=== PATIENT | male | born 1945 | race Caucasian/White ===

== ENCOUNTER 2017-08-20 15:30 | Outpatient (RCR) | payer MEDICARE, OTHER, SELFPAY ==
--- NOTE | 2017-06-26 08:49 | ST.OPTN ---
On June 25, 2017 our therapy services consisting of Speech, Occupational, and Physical therapy transitioned from [employer] electronic documentation system to a new [employer] electronic system. All documentation prior to June 25 can be found under [employer] saved data. From June 25 forward, all medical record documentation will be in [employer] 6.1.
--- NOTE | 2017-08-20 17:37 | ST.OPRE ---
Visit Care Team Role Provider Type Sofia Rosales DO Family Provider Physician Primary Care Provider Specialty: Family Practice Address: [address] [place] [address], [id number] Email: [email or web address] Michela Auguste MD Attending Provider Non-Staff Specialty: Neurology Address: [address] [place] [address], [id number] Email: Speech-Language Pathology Evaluation/Summary WEBLOGIC DEVELOPER Treatment Note Start: 06/26/17 12:19 Freq: Status: Active Protocol: Document 08/20/17 17:21 JASIEL (Rec: 08/20/17 17:34 JASIEL [email or web address]) Speech Pathology Treatment Note Session Time Visit Start Time 15:30 Visit Stop Time 16:15 Total Visit Minutes 45 Visit Information Visit Number Re-evaluation Plan of Care Dates 08/20/17 - 11/14/17 Insurance Information Medicare Setting Treatment Setting Outpatient Care Visit Type Note Type Treatment Note Next Note Type Next Note Type Treatment Note General Information General Information 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 Subjective Observations/Patient Presentation Pt arrived on time. Has demonstrated near daily use of Constant Therapy HEP pina. Chief Complaint(s) Language Cognitive Rehab Expectation/Goals: Patient Goals Improve loss of function to WFL. Patient Knowledge/Awareness of WEBLOGIC DEVELOPER Role Good in Treatment Parent/Caretake Knowledge/Awareness of Good WEBLOGIC DEVELOPER Role in Treatment Patient/Caregiver Compliance with Home Fair Exercise Program Objective Short Term Goals 1. Complete therapy-based tasks with 75% accuracy in order to improve working memory for functional use. 2. Participate in errorless learning tasks with 80% accuracy in order to improve short term memorization skills . 3. Complete HEP tasks at least 3 days/week to improve skills and promote carryover. Catalyst Unit Operator Goals Use compensatory memory strategies to maintain independence in completing ADLs. Treatment Activities Pt demonstrating improvement in HEP tasks and consistent compliance over the previous 2 weeks. Adjusted tasks according to pt's progress. Pt completed memory tasks (voice message, N-back x2 components ) with 80% and 79% accuracy, respectively. Pt is generally making progress in tasks with all scores improved since baseline; lowest scores evident in analytical reasoning, mathematic, auditory comprehension and selective memory tasks. Assessment Patient Response to Treatment Good Rehab Potential Good Impairments Identified Cognitive-Linguistic Skills Memory - Short Term Memory - Working Progress Towards Goals Good Progress Assessment of Overall Progress Improving Assessment of Improvement With consistent compliance with HEP, the pt exhibits improvement in a variety of language and cognitive communication tasks. Pt is advancing in most tasks to higher levels of difficulty and has demonstrated improvement from baseline scores in all areas. He continues to use memory notebook to track daily information and expresses comfort and benefit from this use. He reports maintaining his ability to perform home and volunteer responsibilities . Plan: Continue skilled intervention with decreased frequency for carryover of HEP compliance leading to discharge to [facility] anticipated within 2-4 visits. Reviewed with Patient Goals Progress Being Made Home Exercise Program Patient/Caregiver Understanding Good Plan Amount of Therapy Recommended 2 Months Comment 1-2 visits in 4 weeks Length of Session 45 Minutes Comment Frequency: 1 visit every 2 weeks Treatment Emphasis Next Session Attention, Working memory Therapeutic Contents Client Education Cognitive-Linguistic Training Home Exercise Program Provided Patient/Caregiver Instruction Home Exercise Program Plan of Care Questions/Concerns Therapy Recommendations Continue with Current Program
== END 2017-08-20 16:49 ==
LOC: SP 15:30
PROVIDERS: Family Provider Family Medicine; PCP Family Medicine; Visit Provider Psychiatry & Neurology Neurology
DX: I69.919 Unspecified symptoms and signs involving cognitive functions following unspecified cerebrovascular disease (principal)
CPT/HCPCS: 97127

== ENCOUNTER 2017-10-17 13:22 | Observation (INO) | payer MEDICARE, OTHER, SELFPAY ==
[2017-10-17] VITALS (9 sets, daily range): BP systolic 134–171; BP diastolic 77–100; PULSE 59–85; RESP 10–21; TEMP 36.5–36.8; O2SAT 95–99; BMI 34.8
--- NOTE | 2017-10-17 | DI.CT.S_ITS ---
PROCEDURE: CT CERVICAL SPINE WO CON INDICATIONS: SENSORY CHANGES LT HAND Vertebrobasilar TIA? TECHNIQUE: Noncontrast 3 mm thick sections acquired from the skull base to the T4 level. Sagittal and coronal reformats were then constructed. For radiation dose reduction, the following was used: automated exposure control, adjustment of mA and/or kV according to patient size. COMPARISON: [facility], CT, CT ANGIO HEAD AND NECK, 10/17/2017, 14:05. FINDINGS: Image quality: Excellent. Bones: No fractures or dislocations. There is straightening of the cervical lordosis. Multilevel moderate disc space narrowing is demonstrated in the mid and lower cervical spine with endplate sclerosis and osteophytosis. There is also mild multilevel uncovertebral and facet joint arthropathy. Associated posterior disc osteophyte complexes are demonstrated at C3-T1 with likely associated mild spinal canal narrowing. There is multilevel bony neuroforaminal narrowing also noted most prominent on the right at C5-C6 where there is moderate to severe bony neuroforaminal narrowing. On the left, there is likely moderate bony narrowing at C3-C4, C4-C5, C5-C6. Visualized superior ribs are intact. Soft tissues: Prevertebral soft tissues are normal in thickness. No paravertebral hematomas. No apical pneumothoraces. IMPRESSION: 1. Multilevel degenerative disc disease, uncovertebral joint arthropathy, and facet arthropathy in the mid and lower cervical spine. There is associated multilevel spinal canal and bony neuroforaminal narrowing as described. Dictated by: Ish Pizano M.D. on 10/17/2017 at 19:08 Approved by: Ish Pizano M.D. on 10/17/2017 at 19:15
--- NOTE | 2017-10-17 13:33 | DI.CT.S_ITS ---
PROCEDURE: CT HEAD/BRAIN WO CON INDICATIONS: possible stroke seeing double vison TECHNIQUE: Noncontrast 4.5 mm thick angled axial sections acquired from the foramen magnum to the vertex, with coronal and sagittal reformats. For radiation dose reduction, the following was used: automated exposure control, adjustment of mA and/or kV according to patient size. COMPARISON: [facility], MR, BRAIN WITHOUT CONTRAST, 07/04/2016, 12:50. [facility], CT, HEAD WITHOUT CONTRAST, 12/27/2013, 14:54. FINDINGS: Image quality: Excellent. CSF spaces: Basal cisterns are patent. No extra-axial fluid collections. The ventricles are symmetric in size and shape. Brain: No intracranial bleeds or masses. There is cerebral volume loss for age, with resultant ventricular and sulcal prominence. There are periventricular and deep white matter chronic small vessel ischemic changes. There is intracranial internal carotid artery atherosclerosis. Skull and face: Calvarium and visualized facial bones appear intact, without suspicious lesions. Sinuses: Visualized sinuses and mastoids are clear. IMPRESSION: 1. No acute intracranial abnormalities. 2. Cerebral volume loss and chronic microvascular ischemic changes. The result was discussed with Dr. Harrison on 10/17/2017 at 13:48 hours. Dictated by: Verónica Arnold M.D. on 10/17/2017 at 13:45 Approved by: Verónica Arnold M.D. on 10/17/2017 at 13:49
--- NOTE | 2017-10-17 13:41 | PC.NURSE ---
Code Stroke called at 1330 with DO Harrison at bedside.
[2017-10-17 13:42] LABS: Add Manual Diff / Slide Review NO; Basophils Percent Auto 0.8 % (0-2); Eosinophils Percent Auto 1.8 % (2-4); Hematocrit 45.1 % (41-53); Hemoglobin 15.5 g/dL (13.5-17.5); Lymphocytes Percent Auto 28.8 % (25-40); Mean Corpuscular HGB Conc 34.4 % (30-36); Mean Corpuscular Hemoglobin 30.6 PG (26-34); Mean Corpuscular Volume 88.9 fL (80-100); Monocytes Percent Auto 10.6 % (3-14); Neutrophils Absolute Auto 4700 /uL (3000-5900); Platelet Count 208 X10^3/uL (150-400); Red Blood Cell Count 5.08 X10^6/uL (4.5-5.9); Red Cell Distribution Width 13.5 % (11.6-14.8); White Blood Cell Count 8.1 X10^3/uL (4.5-11.0)
[2017-10-17 13:45] LABS: Prothrombin Time 11.4 SECONDS (10.1-12.7)
[2017-10-17 13:48] LABS: PTT Partial Thromboplastin Tim 30 SECONDS (26.4-36.2)
[2017-10-17 13:50] LABS: Alanine Aminotransferase 33 IU/L (21-72); Albumin 4.7 g/dL (3.5-5.0); Albumin Globulin Ratio 1.5 (1.0-2.8); Alkaline Phosphatase 61 U/L (38-126); Aspartate Aminotransferase 36 IU/L (17-59); Bilirubin Total 0.8 mg/dL (0.2-1.3); Blood Urea Nitrogen 15 mg/dL (9-20); Calcium 9.2 mg/dL (8.4-10.2); Carbon Dioxide 22 mmol/L (22-32); Chloride 104 mmol/L (98-107); Estimated Glomerular Filt Rate > 60.0 mL/min (>60); Globulin 3.1 g/dL (1.7-4.1); Glucose 110 mg/dL (80-110); Potassium 4.5 mmol/L (3.4-5.1); Sodium 138 mmol/L (137-145); Total Protein 7.8 g/dL (6.3-8.2)
[2017-10-17 13:53] LABS: HEMOLYSIS 66 (0-50)
--- NOTE | 2017-10-17 14:01 | ED_ITS ---
HPI - Neuro Symptoms/Deficit General Chief Complaint: Neuro Symptoms/Deficit Stated Complaint: head spinning,thinks he is having a stroke Time Seen by Provider: 10/17/17 13:25 Source: patient Mode of arrival: ambulatory Limitations: no limitations History of Present Illness HPI Narrative: 72-year-old male here for evaluation of blurry vision and ?head fogginess? patient states that it started approximately 30 min prior to arrival here in the emergency department. Was sudden onset. No other associated symptoms. He states that this is what he felt like prior to the diagnosis of his last stroke where he was sent to [facility]. Patient is on Plavix. Not on aspirin. No balance issues. No headaches. No trauma. On Anticoagulants: Yes (plavix) Related Data Previous Rx's Medication Instructions Recorded atorvastatin 20 mg tablet 20 mg PO DAILY #90 tab 09/20/17 clopidogrel 75 mg tablet 75 mg PO QDAY #90 tab 09/20/17 insulin glargine (U-100) 100 10 unit SUBCUT QDAY #3 ml 09/20/17 unit/mL (3 mL) subcutaneous pen metformin 500 mg tablet 500 mg PO QDAY #90 tab 09/20/17 Allergies Allergy/AdvReac Type Severity Reaction Status Date / Time No Known Drug Allergies Allergy Verified 10/17/17 14:03 Review of Systems Constitutional Denies chills, Denies fatigue, Denies fever(s), Denies frequent falls, Denies headache(s) and Denies weakness Eyes Denies blind spots, Reports blurry vision, Reports change in vision, Denies diplopia, Denies irritation and Denies loss of vision ENT Ears, Nose, Mouth, and Throat: Denies vertigo, Denies dizziness, Denies headache (s), Denies disequilibrium and Denies sore throat Cardiovascular Denies chest pain, Denies syncope, Denies palpitations and Denies dyspnea Respiratory Denies cough and Denies dyspnea Gastrointestinal Gastrointestinal: Denies abdominal pain, Denies change in stool character, Denies nausea and Denies vomiting Genitourinary Denies hematuria and Denies dysuria Musculoskeletal Denies abnormal gait, Denies myalgias, Denies arthralgias, Denies numbness and Denies tingling Integumentary/Breasts Denies lesions and Denies rash Neurologic Denies abnormal movements, Denies abnormal speech, Denies abnormal gait, Denies behavioral changes, Denies confusion, Denies vertigo, Denies dizziness, Denies syncope, Denies frequent falls, Denies headache(s), Denies focal weakness, Denies loss of vision, Denies numbness, Denies sensory deficit, Denies tingling , Denies paresthesias, Denies disequilibrium and Denies weakness Psychiatric Denies behavioral changes and Denies confusion Endocrine Denies fatigue, Denies flushing and Denies palpitations Hematologic/Lymphatic Denies easy bleeding and Denies easy bruising [facility] Medical History Stroke (Acute 12/2013) Diabetes (Chronic 2013) Hyperlipemia (Chronic Unknown) Hypertension (Chronic Unknown) Osteoarthritis (Chronic Unknown) Malaria (Resolved 1973) Measles (Resolved 1955) Mumps (Resolved 1955) Skin mole (Resolved 2013) Surgical History History of hip replacement (04/27/14) Family History Brother Age: 61 Diabetes mellitus Father Stroke Grandmother Diabetes mellitus Heart disease Mother Stroke Grandfather Heart disease Sister Age: 68 Diabetes mellitus Social History Smoking Status: Never smoker alcohol intake: never substance use type: does not use Exam Initial Vital Signs Initial Vital Signs: Vital Signs Temperature 98.3 F 10/17/17 13:22 Pulse Rate 85 10/17/17 13:22 Respiratory Rate 16 10/17/17 13:22 Blood Pressure 160/84 H 10/17/17 13:22 Pulse Oximetry 99 10/17/17 13:22 Const General: cooperative, healthy appearing, comfortable, well developed, well groomed and No acute distress Orientation: alert, awake and oriented x3 HENMT Head: normal to inspection, normocephalic and atraumatic Ears: hearing grossly normal bilaterally Nose: external nose normal Face and sinus: normal facial exam Mouth: oral mucosae normal Eyes General: appearance normal, both eyes and all related structures Conjunctivae: conjunctivae normal Pupils: PERRL EOM: EOM intact bilaterally Resp Effort & Inspection: normal respiratory effort Auscultation: clear to auscultation bilaterally Cardio Rate: regular rate Rhythm: regular rhythm Heart Sounds: no murmurs Pulses: radial pulses present GI Inspection: non-distended Palpation: soft, No firm and No guarding Skin Lesions: no lesions Rashes: no rashes Neuro General: alert, awake and oriented x3 Cranial Nerves: CN's II-XI intact bilaterally Cognition: normal cognition Speech: speech normal Gait: normal gait Motor: muscle tone normal throughout Sensory Exam: no sensory deficits noted Extrem General: normal to inspection, full ROM and capillary refill normal Psych Appearance: grossly normal and well kempt Scores GCS [place] coma scale eye opening: Spontaneous Vika coma scale verbal response: Orientated Vika coma scale motor response: Obey commands [place] coma scale total score: 15 NIH Stroke Scale Level of Conciousness: Alert, keenly responsive Ask month/age: Answers both questions correctly. Open/close eyes, close hand: Performs both tasks correctly Best gaze horizontal: Normal Visual madsen: No visual loss Facial palsy: Normal symetrical movement Left arm drift: No drift for full 10 sec Right arm drift: No drift for full 10 sec Left leg drift: No drift for full 10 sec Right leg drift: No drift for full 10 sec Limb ataxia: Absent Sensory on face/arms/legs: Normal, no sensory loss Best language: No aphasia, normal Dysarthria: Normal Extinction or inattention: No abnormality Total NIH Stroke scale score: 0 Course Orders Ordered: ED Orders 10/17/17 13:25 Complete Blood Count AUTO DIFF Stat Comprehensive Metabolic Panel Stat Partial Thromboplastin Time Stat Prothrombin Time INR Stat 10/17/17 13:31 EKG-12 Lead Stat 10/17/17 13:33 CT head/brain wo con Stat 10/17/17 14:11 CT angio head and neck Stat Discontinued Medications Aspirin (Aspirin Chew) 324 mg PO NOW ONE Stop: 10/17/17 15:20 Sodium Chloride (Normal Saline 0.9%) 1,000 mls @ 1,000 mls/hr IV BOLUS ONE Stop: 10/17/17 15:07 Last Infusion: 10/17/17 15:23 Dose: 0 mls/hr Admin: 10/17/17 14:24 Dose: 1,000 mls/hr Vital Signs - 8 hr 10/17/17 13:22 10/17/17 13:42 10/17/17 14:15 Temperature 98.3 F Pulse Rate 85 83 72 Respiratory Rate 16 16 18 Blood Pressure 160/84 H Blood Pressure [Left Arm] 171/97 H 135/88 H Pulse Oximetry 99 97 96 10/17/17 14:50 10/17/17 15:00 Temperature Pulse Rate 81 76 Respiratory Rate 21 14 Blood Pressure Blood Pressure [Left Arm] 134/79 H 142/91 H Pulse Oximetry 96 97 MDM - Neuro Symptoms/Deficit Medical Records Attestation: I reviewed the patient's medical records. Lab Data Attestation: I reviewed the patient's lab results. Result diagrams: 10/17/17 13:25 10/17/17 13:25 Lab Results 10/17/17 10/17/17 10/17/17 Range/Units 13:25 13:25 13:25 WBC 8.1 (4.5-11.0) X10^3/uL RBC 5.08 (4.5-5.9) X10^6/uL Hgb 15.5 (13.5-17.5) g/dL Hct 45.1 (41-53) % MCV 88.9 (80-100) fL MCH 30.6 (26-34) PG MCHC 34.4 (30-36) % RDW 13.5 (11.6-14.8) % Plt Count 208 (150-400) X10^3/uL Neut % (Auto) 58.0 (50-75) % Lymph % (Auto) 28.8 (25-40) % [place] % (Auto) 10.6 (3-14) % Eos % (Auto) 1.8 L (2-4) % Baso % (Auto) 0.8 (0-2) % Neut # (Auto) 4700 (3429-7950) /uL PT 11.4 (10.1-12.7) SECONDS INR 1.0 (0.9-1.3) APTT 30 (26.4-36.2) SECONDS Sodium 138 (137-145) mmol/L Potassium 4.5 (3.4-5.1) mmol/L Chloride 104 (98-107) mmol/L Carbon Dioxide 22 (22-32) mmol/L BUN 15 (9-20) mg/dL Creatinine 1.00 (0.66-1.25) mg/dL Estimated GFR > 60.0 (>60) mL/min BUN/Creatinine Ratio 15.0 (6-22) Glucose 110 (80-110) mg/dL Calcium 9.2 (8.4-10.2) mg/dL Total Bilirubin 0.8 (0.2-1.3) mg/dL AST 36 (17-59) IU/L ALT 33 (21-72) IU/L Alkaline Phosphatase 61 (38-126) U/L Total Protein 7.8 (6.3-8.2) g/dL Albumin 4.7 (3.5-5.0) g/dL Globulin 3.1 (1.7-4.1) g/dL Albumin/Globulin Ratio 1.5 (1.0-2.8) Imaging Data CT scan - head: Radiologist's impression: [address] [address] [address] Scan Report Addendum Patient: Micha Aldrich FMR#: [id number] : 4Acct:[id number] Age/Sex: 72 / MDate of Service: 10/17/17 Loc: ED Accession Number: [id number] Procedure: CT head/brain wo con Ordering Provider: Jeramy Harrison D.O. ADDENDUM This report includes an Addendum and supersedes previous reports for this exam. PROCEDURE: CT HEAD/BRAIN WO CON INDICATIONS: possible stroke seeing double vison TECHNIQUE: Noncontrast 4.5 mm thick angled axial sections acquired from the foramen magnum to the vertex, with coronal and sagittal reformats. For radiation dose reduction, the following was used: automated exposure control, adjustment of mA and/or kV according to patient size. COMPARISON: [facility], MR, BRAIN WITHOUT CONTRAST, 07/04/2016, 12:50. [facility], CT, HEAD WITHOUT CONTRAST, 12/27/2013, 14:54. FINDINGS: Image quality: Excellent. CSF spaces: Basal cisterns are patent. No extra-axial fluid collections. The ventricles are symmetric in size and shape. Brain: No intracranial bleeds or masses. There is cerebral volume loss for age , with resultant ventricular and sulcal prominence. There are periventricular and deep white matter chronic small vessel ischemic changes. There is intracranial internal carotid artery atherosclerosis. Skull and face: Calvarium and visualized facial bones appear intact, without suspicious lesions. Sinuses: Visualized sinuses and mastoids are clear. IMPRESSION: 1. No acute intracranial abnormalities. 2. Cerebral volume loss and chronic microvascular ischemic changes. The result was discussed with Dr. Harrison on 10/17/2017 at 13:48 hours. Dictated by: Verónica Arnold M.D. on 10/17/2017 at 13:45 Approved by: Verónica Arnold M.D. on 10/17/2017 at 13:49 ADDENDUM: Subtle asymmetric hypodensity in the right basal ganglia is most likely secondary to basal ganglia calcification. Differential diagnoses include idiopathic calcification related to normal aging, hyperparathyroidism and metabolic disorders. Recommend clinical correlation. Dictated by: Verónica Arnold M.D. on 10/17/2017 at 13:56 Approved by: Verónica Arnold M.D. on 10/17/2017 at 14:01 Addendum Dictated By:Vivian Arnold M.D. Addendum Signed By: Addendum Cosigned By: DD/ TD/TT: 10/17/17 PROCEDURE: CT HEAD/BRAIN WO CON INDICATIONS: possible stroke seeing double vison TECHNIQUE: Noncontrast 4.5 mm thick angled axial sections acquired from the foramen magnum to the vertex, with coronal and sagittal reformats. For radiation dose reduction, the following was used: automated exposure control, adjustment of mA and/or kV according to patient size. COMPARISON: [facility], MR, BRAIN WITHOUT CONTRAST, 07/04/2016, 12:50. [facility], CT, HEAD WITHOUT CONTRAST, 12/27/2013, 14:54. FINDINGS: Image quality: Excellent. CSF spaces: Basal cisterns are patent. No extra-axial fluid collections. The ventricles are symmetric in size and shape. Brain: No intracranial bleeds or masses. There is cerebral volume loss for age , with resultant ventricular and sulcal prominence. There are periventricular and deep white matter chronic small vessel ischemic changes. There is intracranial internal carotid artery atherosclerosis. Skull and face: Calvarium and visualized facial bones appear intact, without suspicious lesions. Sinuses: Visualized sinuses and mastoids are clear. IMPRESSION: 1. No acute intracranial abnormalities. 2. Cerebral volume loss and chronic microvascular ischemic changes. The result was discussed with Dr. Harrison on 10/17/2017 at 13:48 hours. Dictated by: Verónica Arnold M.D. on 10/17/2017 at 13:45 Approved by: Verónica Arnold M.D. on 10/17/2017 at 13:49 CTA head and neck: Radiologist's impression: [address] [address] [address] Scan Report Signed Patient: Micha Aldrich FMR#: [id number] : 4Acct:[id number] Age/Sex: 72 / MDate of Service: 10/17/17 Loc: ED Accession Number: [id number] Procedure: CT angio head and neck Ordering Provider: Jeramy Harrison D.O. PROCEDURE: CT ANGIO HEAD AND NECK INDICATIONS: possible stroke requested by neurology visual problems TECHNIQUE: Precontrast images of the right were performed earlier in the day and are not repeated. After the administration of intravenous contrast, 1 mm thick sections acquired from the aortic arch through the [place]. Post-contrast 4.5 mm thick sections then re-acquired from the foramen magnum to the vertex. 3-dimensional cbevtea-lwkwlxcul-dcgbifrozr (MIP) and/or volume rendering reformats were acquired of the central intracranial vasculature and neck separately. COMPARISON: [facility], MR, STROKE PROTOCOL, 06/11/2013, 10:46. [facility], MR, BRAIN WITHOUT CONTRAST, 07/04/2016, 12:50. [facility], CT, HEAD WITHOUT CONTRAST, 12/27/2013, 14:54. [facility], CT, HEAD WITHOUT CONTRAST, 2013, 15:02. [facility], CT, CT HEAD/BRAIN WO CON, 10/17/2017, 13:27. FINDINGS: Image quality: Excellent. BRAIN: CSF spaces: Ventricles are normal in size and shape. Basal cisterns are patent. No extra-axial fluid collections. Brain: No midline shift. No intracranial bleeds or masses. [place]-white matter interface appears intact. Skull and face: Calvarium and facial bones appear intact, without suspicious lesions. Orbits appear normal. Sinuses: Sinuses and mastoids are clear. HEAD CT ANGIOGRAPHY: Anterior circulation: Intracranial internal carotid arteries are normal in size and flow. The flow within the paired anterior cerebral arteries is normal and symmetric. The flow within the middle cerebral arteries is normal and symmetric. The anterior communicating artery is faintly seen. No aneurysms are seen. Posterior circulation: Visualized portions of the vertebral arteries demonstrate normal caliber. There is a normal basilar artery. There is a prominent right posterior communicating artery seen, with an accompanying diminutive right P1 segment. This is attributed to a type origin of the right posterior cerebral artery, which is considered to be a normal developmental variant of typically no clinical consequence. Flow within the posterior cerebral arteries is normal and symmetric. No aneurysms are seen. NECK CT ANGIOGRAPHY: Carotid system: The great vessels demonstrate a conventional anatomy as they arise from the aortic arch. The origins of the common carotid arteries appear patent. The common carotid arteries demonstrate normal caliber and courses. The bifurcation regions demonstrate atherosclerotic irregularity. No hemodynamically significant stenosis is seen. The internal carotid arteries demonstrate normal calibers and courses. Posterior circulation: The origins of the vertebral arteries both appear widely patent. There is again seen 2 separate origins of the right vertebral artery. This is better seen on the prior MR angiogram. The more superior extracranial portions of both vertebral arteries also demonstrate normal courses and calibers. Note is made that the right vertebral artery is dominant to the left. The left vertebral artery largely terminates in the left posterior inferior cerebellar artery. The basilar artery is unremarkable. Soft tissues: Visualized neck soft tissues demonstrate no suspicious abnormalities. Bones: No suspicious bony lesions. Visualized cervical spine appears normally aligned. Relatively prominent cervical spine degenerative change is seen. Bridging anterior osteophytes are seen at C3-C7. IMPRESSION: No significant intracranial abnormality is detected. No hemodynamically significant stenosis is seen. Incidental note is made of: Dominant right vertebral artery 2 separate origins of the right vertebral artery The left vertebral artery largely terminates in the left posterior inferior cerebral artery type origin of the right posterior cerebral artery. Relatively prominent cervical spine degenerative change. Any quantitative measurements of stenosis were performed using NASCET criteria. Dictated by: Kar Ornelas M.D. on 10/17/2017 at 13:31 Approved by: Kar Ornelas M.D. on 10/17/2017 at 13:44 ECG Data Attestation: I personally reviewed and interpreted this ECG as follows: Prior ECG tracings: not available for review Interpretation: Sinus rhythm Ventricular rate 84 Occasional PVCs Left axis deviation Normal QRS Normal QTC No ST T wave changes MDM Narrative Medical decision making narrative: After further evaluation it appears that during the patient's last visit here where he was diagnosed with a CVA he had significant dysphagia and word-finding issues. He does not have that today. After he returned from the CT of his head patient reports that his symptoms were greatly improving if not completely resolved. Discussed the case with [facility] Stroke team who recommended the CTA. No large vessel was reported in this study. Patient remained asymptomatic while here in the emergency department. Had no objective findings during his stay here. Discussed the case with Dr. Christine with hospitalist who will accept the patient for further workup of TIA. I discussed this with the patient and his were at bedside. They both expressed understanding and agreement with plan. Discharge Plan Departure Patient Disposition: Admitted as Observation Clinical Impression: TIA (transient ischemic attack), Type 2 diabetes mellitus without complication
--- NOTE | 2017-10-17 14:11 | DI.CT.S_ITS ---
PROCEDURE: CT ANGIO HEAD AND NECK INDICATIONS: possible stroke requested by neurology visual problems TECHNIQUE: Precontrast images of the right were performed earlier in the day and are not repeated. After the administration of intravenous contrast, 1 mm thick sections acquired from the aortic arch through the [place] of [place]. Post-contrast 4.5 mm thick sections then re-acquired from the foramen magnum to the vertex. 3-dimensional cqkqyhg-lmcjoahet-vywwmtxwmp (MIP) and/or volume rendering reformats were acquired of the central intracranial vasculature and neck separately. COMPARISON: [facility], MR, STROKE PROTOCOL, 06/11/2013, 10:46. [facility], MR, BRAIN WITHOUT CONTRAST, 07/04/2016, 12:50. [facility], CT, HEAD WITHOUT CONTRAST, 12/27/2013, 14:54. [facility], CT, HEAD WITHOUT CONTRAST, 04/21/2013, 15:02. [facility], CT, CT HEAD/BRAIN WO CON, 10/17/2017, 13:27. FINDINGS: Image quality: Excellent. BRAIN: CSF spaces: Ventricles are normal in size and shape. Basal cisterns are patent. No extra-axial fluid collections. Brain: No midline shift. No intracranial bleeds or masses. [place]-white matter interface appears intact. Skull and face: Calvarium and facial bones appear intact, without suspicious lesions. Orbits appear normal. Sinuses: Sinuses and mastoids are clear. HEAD CT ANGIOGRAPHY: Anterior circulation: Intracranial internal carotid arteries are normal in size and flow. The flow within the paired anterior cerebral arteries is normal and symmetric. The flow within the middle cerebral arteries is normal and symmetric. The anterior communicating artery is faintly seen. No aneurysms are seen. Posterior circulation: Visualized portions of the vertebral arteries demonstrate normal caliber. There is a normal basilar artery. There is a prominent right posterior communicating artery seen, with an accompanying diminutive right P1 segment. This is attributed to a type origin of the right posterior cerebral artery, which is considered to be a normal developmental variant of typically no clinical consequence. Flow within the posterior cerebral arteries is normal and symmetric. No aneurysms are seen. NECK CT ANGIOGRAPHY: Carotid system: The great vessels demonstrate a conventional anatomy as they arise from the aortic arch. The origins of the common carotid arteries appear patent. The common carotid arteries demonstrate normal caliber and courses. The bifurcation regions demonstrate atherosclerotic irregularity. No hemodynamically significant stenosis is seen. The internal carotid arteries demonstrate normal calibers and courses. Posterior circulation: The origins of the vertebral arteries both appear widely patent. There is again seen 2 separate origins of the right vertebral artery. This is better seen on the prior MR angiogram. The more superior extracranial portions of both vertebral arteries also demonstrate normal courses and calibers. Note is made that the right vertebral artery is dominant to the left. The left vertebral artery largely terminates in the left posterior inferior cerebellar artery. The basilar artery is unremarkable. Soft tissues: Visualized neck soft tissues demonstrate no suspicious abnormalities. Bones: No suspicious bony lesions. Visualized cervical spine appears normally aligned. Relatively prominent cervical spine degenerative change is seen. Bridging anterior osteophytes are seen at C3-C7. IMPRESSION: No significant intracranial abnormality is detected. No hemodynamically significant stenosis is seen. Incidental note is made of: Dominant right vertebral artery 2 separate origins of the right vertebral artery The left vertebral artery largely terminates in the left posterior inferior cerebral artery type origin of the right posterior cerebral artery. Relatively prominent cervical spine degenerative change. Any quantitative measurements of stenosis were performed using NASCET criteria. Dictated by: Kar Ornelas M.D. on 10/17/2017 at 13:31 Approved by: Kar Ornelas M.D. on 10/17/2017 at 13:44
[2017-10-17] MEDS: SODIUM CHLORIDE 0.9% 1,000 ML 1000 ML IV (14:24)
--- NOTE | 2017-10-17 14:58 | PC.NURSE ---
Pt states that fingers on his L hand were numb but this is now resolving. MD is aware
[2017-10-17] MEDS: ASPIRIN 81 MG TAB 324 MG PO (15:30)
--- NOTE | 2017-10-17 16:42 | PC.NURSE ---
Pt to acute care from ER. Transferred via wheelchair, ambulated to bed. Dr Christine in to see patient. Reported pain in left ribs below level of heart. Reports rowing with his team this morning. MD agrees it is a muscle pain. Oriented to room and call light. Bed alarm on. Pt reports spouse with be arriving later this evening.
--- NOTE | 2017-10-17 16:45 | P.HP_ITS ---
History of Present Illness Date Patient Seen: 10/17/17 Time Patient Seen: 16:42 Chief complaint: head spinning,thinks he is having a stroke Narrative: SUMMARY PLEASANT 72-YEAR-OLD GENTLEMAN WAS ADMITTED FROM THE ER WITH A HISTORY OF VISUAL DISTURBANCE LASTING FOR ABOUT 20 MIN THIS MORNING WHILE HE WAS IN THE GARAGE BUT NOT DOING ANY HEAVY WORK HE HAD NOT HAD HIS LUNCH TODAY HE WENT OUT TO A ROWING WITH SOME FRIENDS OF HIS EARLIER IN THE DAY AND COMPLAINS OF SOME PAIN IN THE LEFT SIDE AXILLARY REGION NO RADIATION AND NO ASSOCIATION WITH SHORTNESS OF BREATH OR PALPITATIONS THE VISUAL DISTURBANCE CITY HAD THESE RATHER WAIT SAYS THE 2 SIDES OF THE VISUAL RUELAS NOT QUITE TO GATHER AN THIS IS EXACTLY WHAT HE HAD ABOUT 3 YEARS AGO WHEN HE WAS DIAGNOSED WITH A CVA AND HAD A TPA IN THIS HOSPITAL HE HAS NO SYMPTOM FREE THIS TIME A DID NOT HAVE ANY DIFFICULTY SPEECH OR DROOPING OF HIS FACE OF ANY WEAKNESS IN HIS LIMBS HE HAD AN EPISODE A FEW WEEKS AGO WHEN HE HAD NUMBNESS IN HIS LEFT SIDE FINGERS HE DENIES ANY SHORTNESS OF BREATH CENTRAL CHEST PAIN FOR ACID REFLUX TYPE SYMPTOMS ISN'T COMPLAINING OF ANY ABDOMINAL DISCOMFORT Patient History Medical History Stroke (Acute 12/2013) Diabetes (Chronic 2013) Hyperlipemia (Chronic Unknown) Hypertension (Chronic Unknown) Osteoarthritis (Chronic Unknown) Malaria (Resolved 1973) Measles (Resolved 1955) Mumps (Resolved 1955) Skin mole (Resolved 2013) Surgical History History of hip replacement (04/27/14) Family & Social History Family History Brother Age: 61 Diabetes mellitus Father Stroke Grandmother Diabetes mellitus Heart disease Mother Stroke Grandfather Heart disease Sister Age: 68 Diabetes mellitus Social History: household members spouse,children Prior Living Arrangements House Safety & Behavioral: Feels Safe in Current Yes Environment Been Physically Hurt or No Threatened By a Person Suicidal Ideation Description None Tobacco & Substance use: Smoking Status Never smoker alcohol intake never alcohol intake frequency 0-2 drinks per day Substance Use Type does not use Meds Home Medications Medication Instructions Recorded Confirmed Type atorvastatin 20 mg tablet 20 mg PO DAILY #90 tab 09/20/17 10/17/17 Rx clopidogrel 75 mg tablet 75 mg PO QDAY #90 tab 09/20/17 10/17/17 Rx insulin glargine (U-100) 100 10 unit SUBCUT QDAY #3 ml 09/20/17 10/17/17 Rx unit/mL (3 mL) subcutaneous pen metformin 500 mg tablet 500 mg PO QDAY #90 tab 09/20/17 10/17/17 Rx Allergies Allergy/AdvReac Type Severity Reaction Status Date / Time No Known Drug Allergies Allergy Verified 10/17/17 14:03 Review of Systems Review of Systems A 12 SYSTEM REVIEW WAS NEGATIVE FOR ANY ACUTE SYMPTOMS OTHER THAN THE 1 IN THE PRESENTING COMPLAINT ABOVE Exam Vital Signs (past 8 hours): - 10/17/17 13:22 10/17/17 13:42 10/17/17 14:15 Temperature 98.3 F Pulse Rate 85 83 72 Respiratory Rate 16 16 18 Blood Pressure 160/84 H Blood Pressure [Left Arm] 171/97 H 135/88 H Pulse Oximetry 99 97 96 10/17/17 14:50 10/17/17 15:00 10/17/17 15:41 Temperature Pulse Rate 81 76 70 Respiratory Rate 21 14 10 L Blood Pressure Blood Pressure [Left Arm] 134/79 H 142/91 H 156/88 H Pulse Oximetry 96 97 97 10/17/17 16:36 Temperature 97.9 F Pulse Rate 59 L Respiratory Rate 18 Blood Pressure 156/100 H Blood Pressure [Left Arm] Pulse Oximetry 98 Oxygen Delivery Method Room Air Const General: cooperative, healthy appearing, comfortable and well developed Orientation: alert, awake and oriented x3 HENMT Head: normal to inspection Ears: hearing grossly normal bilaterally Nose: external nose normal Face and sinus: normal facial exam Eyes General: appearance normal, both eyes and all related structures Eyelids: eyelids normal Conjunctivae: conjunctivae normal Sclera: sclerae normal Cornea: corneas normal Pupils: PERRL EOM: EOM intact bilaterally Neck Neck: normal visual inspection Thyroid: thyroid normal Resp Effort & Inspection: normal respiratory effort, no respiratory distress and no use of accessory muscles Auscultation: clear to auscultation bilaterally Cardio Rate: regular rate Rhythm: regular rhythm Heart Sounds: S1 normal and S2 normal GI Inspection: normal to inspection Palpation: soft and no hepatosplenomegaly Skin General: no rashes or lesions noted Neuro General: alert, awake, oriented x3 and no meningeal signs Cranial Nerves: CN's II-XI intact bilaterally Cognition: normal cognition Speech: speech normal Motor: muscle tone normal throughout Sensory Exam: no sensory deficits noted Extrem Other: NIL EDEMA Psych Appearance: grossly normal Speech and Movement: speech and movement normal Mood: congruent mood Affect: normal affect Attitude: cooperative Thought Content: normal Judgment: judgment good Objective Labs Result Diagrams: 10/17/17 13:25 10/17/17 13:25 Labs: Laboratory Results - last 24 hr 10/17/17 10/17/17 10/17/17 13:25 13:25 13:25 WBC 8.1 RBC 5.08 Hgb 15.5 Hct 45.1 MCV 88.9 MCH 30.6 MCHC 34.4 RDW 13.5 Plt Count 208 Neut % (Auto) 58.0 Lymph % (Auto) 28.8 [place]in[place] % (Auto) 10.6 Eos % (Auto) 1.8 L Baso % (Auto) 0.8 Neut # (Auto) 4700 PT 11.4 INR 1.0 APTT 30 Sodium 138 Potassium 4.5 Chloride 104 Carbon Dioxide 22 BUN 15 Creatinine 1.00 Estimated GFR > 60.0 BUN/Creatinine Ratio 15.0 Glucose 110 Calcium 9.2 Total Bilirubin 0.8 AST 36 ALT 33 Alkaline Phosphatase 61 Total Protein 7.8 Albumin 4.7 Globulin 3.1 Albumin/Globulin Ratio 1.5 Assessment & Plan Plan: Assessment/Plan Narrative: 1. VISUAL DISTURBANCE SUGGESTIVE OF POSSIBLE TIA THE ER DOCTOR HAD CONSULTED WITH THE NEUROLOGIST FROM [facility] A CT SCAN WAS DONE CT ANGIOGRAM WAS ALSO DONE PRIOR TO TRANSFER FROM THE ER TO THE FLOOR THE NEUROLOGIST THINKS THAT IT IS LIKELY TO BE A TIA NO INDICATION FOR TPA 2. DIABETES MELLITUS ON LANTUS AND METFORMIN HEMOGLOBIN A1C WAS 6.4 THE RECENT PAST 3. ON ATORVASTATIN FOR HYPERLIPIDEMIA WILL INCREASE THE DOSE FROM 20 MG TO 40 MG 4. ON PLAVIX FOR THE LAST [address] ANGIOGRAM DOES NOT REVEAL ANY SIGNIFICANT CAROTID ARTERY STENOSIS CERVICAL SPINE X-RAYS A CT SCAN BE DONE SINCE HE IS COMPLAINING OF SOME SENSORY CHANGES IN THE HAND Time Spent With Patient Time with patient: Greater than 35 minutes Quality VTE Deep Vein Thrombosis/Pulmonary Embolism Present on Admission: No
[2017-10-17] MEDS: ATORVASTATIN 20 MG TABLET PO (23:00)
[2017-10-17] MEDS: INSULIN GLARGINE 100 UNIT/ML 3ML PEN 10 UNIT SUBCUT (23:02)
[2017-10-18 04:30] VITALS: BP 128/80; PULSE 64; RESP 17; TEMP 36.6; O2SAT 97
--- NOTE | 2017-10-18 04:55 | PC.NURSE ---
shift note met with pt at start of shift. Pt is AOx3. Pleasant and cooperative. Denies pain, numbness, tingling or headache. NIH 0. Steady gait when walking to bathroom. Call light in reach.
[2017-10-18 07:15] VITALS: BP 163/81; PULSE 61; RESP 16; TEMP 36.6; O2SAT 96
[2017-10-18] MEDS: CLOPIDOGREL 75 MG TABLET PO (09:27)
[2017-10-18 11:30] VITALS: BP 146/97; PULSE 76; RESP 16; TEMP 36.9; O2SAT 98
--- NOTE | 2017-10-18 13:59 | PC.NURSE ---
Pt is sleeping soundly. Family in room. Denies pain at this time.
--- NOTE | 2017-10-18 15:06 | CM.IDA ---
DCP Assessment Note: Pt is a 72 yo male, resident [facility]. Pt under obs status for dizziness and stroke scare. Pt's PCP is Sofia Rosales; Insurance is Medicare/[employer]. Met w/pt and his today, very pleasant couple and very appreciative of the visit. Pt and spouse explain they expect no DC needs. They feel well supported by their family and restorationism community. Pt will likely remain here overnight and be DC home tomorrow w/close outpt f/u if no medical concerns arise. Home when ready. MARCELL Stone Discharge Planning/Care Management CM Discharge Assessment Start: 10/18/17 15:03 Freq: Status: Active Protocol: Document 10/18/17 15:03 MONA (Rec: 10/18/17 15:06 MONA [id number]) Discharge Planning Assessment Assigned Addictions Counselor Assistant MONA DPOA/Assigned Designee Name Fatoumata Aldrich, spouse Contact Information [phone] Advance Directives? No History Provided By Patient Significant Other Medical Record Prior Living Arrangements House Household Members spouse children Comment Lives w/his spouse and dtr Type of transporation used prior to Drives own vehicle admit Independent with ADL's Yes Is patient alert and oriented? Yes Comment Indp at baseline even w/ h/o stroke, 2 hip surgeries, and some short term memory loss. Barriers to Discharge No Discharge Plan Home Transportation Arrangement Family Referrals Initiated None needed Additional Comment Pt is A+O, he and are active and indp, important members of their restorationism community. Fatoumata expects no barriers to DC home w/her and their children/community to assist as needed. Pt w/h/o Deneen Vincent after hip surgery. Pt remains obs status . Whiteboard Updated in Patient Room with Yes name and ext. # of Addictions Counselor Assistant Review Status In Process
[2017-10-18 15:50] VITALS: BP 141/76; PULSE 67; RESP 16; TEMP 36.4; O2SAT 93
--- NOTE | 2017-10-18 16:03 | PM.DS.1 ---
History of Present Illness Chief complaint: head spinning,thinks he is having a stroke Narrative: SUMMARY PLEASANT 72-YEAR-OLD GENTLEMAN WAS ADMITTED FROM THE ER WITH A HISTORY OF VISUAL DISTURBANCE LASTING FOR ABOUT 20 MIN THIS MORNING WHILE HE WAS IN THE GARAGE BUT NOT DOING ANY HEAVY WORK HE HAD NOT HAD HIS LUNCH TODAY HE WENT OUT TO A ROWING WITH SOME FRIENDS OF HIS EARLIER IN THE DAY AND COMPLAINS OF SOME PAIN IN THE LEFT SIDE AXILLARY REGION NO RADIATION AND NO ASSOCIATION WITH SHORTNESS OF BREATH OR PALPITATIONS THE VISUAL DISTURBANCE CITY HAD THESE RATHER WAIT SAYS THE 2 SIDES OF THE VISUAL RUELAS NOT QUITE TO GATHER AN THIS IS EXACTLY WHAT HE HAD ABOUT 3 YEARS AGO WHEN HE WAS DIAGNOSED WITH A CVA AND HAD A TPA IN THIS HOSPITAL HE HAS NO SYMPTOM FREE THIS TIME A DID NOT HAVE ANY DIFFICULTY SPEECH OR DROOPING OF HIS FACE OF ANY WEAKNESS IN HIS LIMBS HE HAD AN EPISODE A FEW WEEKS AGO WHEN HE HAD NUMBNESS IN HIS LEFT SIDE FINGERS HE DENIES ANY SHORTNESS OF BREATH CENTRAL CHEST PAIN FOR ACID REFLUX TYPE SYMPTOMS ISN'T COMPLAINING OF ANY ABDOMINAL DISCOMFORT Discharge Providers Date of admission: 10/17/17 15:43 Primary care physician: Sofia Rosales DO Consults: 10/17/17 16:42 Consult to [employer] Routine Comment: Discharge provider: Amos Lopez MD Summary Discharge Diagnosis: 1. DIZZINESS WITHNO EVIDENCE OF TIA OR CVA 2. HISTORY OF CVA THE POSTERIOR CEREBRAL TERRITORY 3 YEARS AGO 3. DIABETES MELLITUS ON INSULIN AND METFORMIN 4. NORMAL ECHO CARDIOGRAPHIC FINDINGS WITH EF 55-60% Hospital Course: THIS VERY PLEASANT GENTLEMAN WITH A PREVIOUS HISTORY OF STROKE 3 YEARS AGO RECEIVED THE TPA AT THAT TIME FOR SYMPTOMS MOST LIKELY IN THE POSTERIOR CEREBRAL TERRITORY CAME THIS TIME TO THE ER BECAUSE HE HAD SOME VAGUE SYMPTOMS OF NOT SEEING THINGS RIGHT AND SOME DIZZINESS LASTING ABOUT 20 MIN HE WAS SOMEWHAT CONCERNED BECAUSE A FEW DAYS EARLIER HE HAD SLEEPY FINGERS FOR A FEW MINUTES IN THE ER HE HAD A CT OF THE HEAD WHICH WAS NEGATIVE FOR ANY ACUTE INFARCTION THE ER DOCTOR CONSULTED THE INDONESIAN NEUROLOGIST AND TODAY THE PATIENT HAD CT ANGIOGRAM WHICH DID NOT REVEAL ANY BLOCKAGES ANY MAJOR VESSELS AN ECHOCARDIOGRAM WAS DONE TO RULE OUT ANY POSSIBLE EMBOLIC SOURCE THIS CTA WAS REPORTED SHOWING DEGENERATIVE CHANGE OF THE CERVICAL SPINE AND A CT SPINE ALSO CONFIRMED FAIRLY ADVANCED MULTILEVEL DEGENERATIVE JOINT DISEASE OF THE CERVICAL SPINE THE PLAN WOULD BE FOR HIM TO CONTINUE HIS USUAL MEDICATIONS OF PLAVIX FOLLOW UP WITH THE NEUROLOGIST THAT HE HAS ALREADY SEEN AT [facility] FOLLOW UP WITH HIS PRIMARY CARE PHYSICIAN IN 1 WEEKS TIME Status at Discharge Functional status at discharge: independent ambulation Overall status at discharge: patient is back to baseline Time Spent with Patient Greater than 30 minutes Exam Vital Signs (past 8 hours): - 10/18/17 11:30 Temperature 98.5 F Pulse Rate 76 Respiratory Rate 16 Blood Pressure 146/97 H Pulse Oximetry 98 Oxygen Delivery Method Room Air Const General: cooperative, healthy appearing, comfortable and well developed Orientation: alert, awake and oriented x3 HENMT Head: normal to inspection Ears: hearing grossly normal bilaterally Nose: external nose normal Face and sinus: normal facial exam Mouth: oral mucosae normal Eyes General: appearance normal, both eyes and all related structures Eyelids: eyelids normal Conjunctivae: conjunctivae normal Sclera: sclerae normal Pupils: PERRL EOM: EOM intact bilaterally Neck Neck: normal visual inspection Thyroid: thyroid normal Resp Effort & Inspection: normal respiratory effort, no respiratory distress and no use of accessory muscles Auscultation: clear to auscultation bilaterally Cardio Rate: regular rate Rhythm: regular rhythm Heart Sounds: S1 normal and S2 normal GI Inspection: normal to inspection Palpation: soft and no hepatosplenomegaly Back/Spine/Pelvis Back: normal to inspection Skin General: no rashes or lesions noted Neuro General: alert, awake, oriented x3 and no meningeal signs Cranial Nerves: CN's II-XI intact bilaterally Cognition: normal cognition Speech: speech normal Gait: normal gait Motor: muscle tone normal throughout Extrem General: normal to inspection Psych Appearance: grossly normal Speech and Movement: speech and movement normal Mood: congruent mood Affect: normal affect Attitude: cooperative Thought Process: normal Thought Content: normal Judgment: judgment good Objective Labs Result Diagrams: 10/17/17 13:25 10/17/17 13:25 Discharge Plan Discharge Plan Patient Disposition: Home Provider Discharge Instructions Diet: Low-fat Activity: AD ESTELLE Discharge Data Primary Care Provider: Sofia Rosales Attending Provider: Pradeep Lopez Admit Date/Time: 10/17/17 15:43 Quality VTE Deep Vein Thrombosis/Pulmonary Embolism Present on Admission: No
--- NOTE | 2017-10-18 16:47 | DI.ECHO.S_ITS ---
[facility] +---------+ : : [address] : : : : [id number] : : : : Phone: [phone]+ Echocardiogram Report + + :Name: INESSA QUIGLEY Study Date: 10/18/2017 Height: 69 in : :[facility] Exam Location: [place] Weight: 239 lb : : Gender: Male BSA: 2.2 m2 : :: 1945 Age: 72 yrs BP: 146/97 mmHg: :Reason For Study: VISUAL DISTRUBANCES : : Performed By: Carolyn Vargas : :Referring: EBENEZER WALSH : + + Interpretation Summary Normal sinus rhythm. Normal LV size; wall thickness, wall motion and LV systolic function. EF is 55-60%. There are normal chamber sizes. Aortic sclerosis with no associated significant stenosis. In particular, non-coronary leaflet of the aortic valve is quite thickened and calcified. Otherwise no significant valvular abnormalities. No prior study available for comparison. Procedure: A two-dimensional transthoracic echocardiogram with color flow and Doppler was performed. The study quality was technically adequate. There is no prior echocardiogram noted for this patient. The heart rate ranged between 60-77 bpm during the study. Left Ventricle: The left ventricle is normal in size, wall thickness, and systolic function without any focal wall motion abnormalities. The ejection fraction is estimated to be 55-60%. Right Ventricle: The right ventricle is mildly dilated. The right ventricular systolic function is normal. Atria: Both atria are normal in size. There is no Doppler evidence for an interatrial shunt. Mitral Valve: The mitral valve leaflets appear thickened, but open well. There is trace mitral regurgitation. Aortic Valve: The aortic valve is trileaflet. Non coronary cusp appears calcified with reduced excursion. There is mild aortic valve sclerosis. There is no hemodynamically significant valvular aortic stenosis. There is trace aortic regurgitation. Tricuspid Valve: The tricuspid valve is normal in structure and function. There is a trace or physiologic amount of tricuspid regurgitation. The right ventricular systolic pressure is estimated at 26 mmHg assuming a right atrial pressure of 3 mm Hg. Pulmonic Valve: The pulmonic valve is not well seen, but is grossly normal. There is a trace or physiologic amount of pulmonic regurgitation. Great Vessels: The aortic root is normal size. The ascending aorta is normal in size. The aortic arch could not be visualized. The pulmonary artery is normal size. The IVC is of normal diameter and collapses greater than 50% with a sniff. This suggests a low right atrial pressure of 3 mm Hg. Pericardium/ Pleura There is no pericardial effusion. There is no pleural effusion. MMode/2D Measurements & Calculations LVIDd: 4.6 cm LVOT diam: 2.4 cm LVIDs: 2.6 cm Ao root diam: 3.0 cm FS: 42.8 % asc Aorta Diam: 3.2 cm IVSd: 0.90 cm LVPWd: 0.91 cm LV prieto. diameter/BSA (cm/m^2): 2.1 LV sys. diameter/BSA (cm/m^2): 1.2 LA A2 area: 20.6 cm2 RA long axis: 5.0 cm LA A4 area: 20.6 cm2 RA area: 11.6 cm2 LA length (vol): 5.4 cm RA vol: 22.7 ml LA vol: 66.5 ml RA : 10.2 ml/m2 LA vol index: 29.9 ml/m2 RVD1 (basal): 3.3 cm TAPSE: 2.5 cm Doppler Measurements & Calculations Ao V2 max: 173.1 cm/sec LVOT Max Juan Alberto: 107.4 cm/sec Ao V2 mean: 122.5 cm/sec LV V1 max P.6 mmHg Ao max P.0 mmHg LV V1 VTI: 21.3 cm Ao mean P.8 mmHg JAVED(I,D): 2.6 cm2 Ao V2 VTI: 35.3 cm JAVED(V,D): 2.7 cm2 sev ratio: 0.60 JAVED indexed to BSA (cm^2/m^2): 1.2 MV E max juan alberto: 61.9 cm/sec TR max juan alberto: 241.7 cm/sec MV A max juan alberto: 90.9 cm/sec TR max P.4 mmHg MV E/A: 0.68 PA V2 max: 66.9 cm/sec Med Peak E' Juan Alberto: 3.7 cm/sec PA V2 mean: 42.6 cm/sec E/E' med: 16.8 PA mean P.82 mmHg Lat Peak E' Juan Alberto: 6.6 cm/sec E/E' lat: 9.3 E/e' average: 13.1 MV dec time: 0.32 sec Reading Physician:01:28 PM
== END 2017-10-18 17:15 | disposition home or self-care (01) ==
LOC: ED 15:16 → AC 15:44
PROVIDERS: Admitting Provider Internal Medicine; Emergency Provider Emergency Medicine; Family Provider Family Medicine; PCP Family Medicine; Visit Provider Internal Medicine
DX: R42 Dizziness and giddiness (principal); H53.8 Other visual disturbances; E11.9 Type 2 diabetes mellitus without complications; Z79.4 Long term (current) use of insulin; E78.5 Hyperlipidemia, unspecified; Z79.01 Long term (current) use of anticoagulants; M47.9 Spondylosis, unspecified; Z86.73 Personal history of transient ischemic attack (TIA), and cerebral infarction without residual deficits
CPT/HCPCS: 36591; 70450; 70496; 70498; 72125; 80053; 82962; 85025; 85610; 85730; 93005; 93010; 93306; 96360; 99285; 99291; G0378; Q9967

== ENCOUNTER 2023-06-25 18:05 | Emergency (ER) | payer OTHER, SELFPAY ==
[2017-10-17 16:24] VITALS: BMI 34.8
[2023-06-25] VITALS (12 sets, daily range): BP systolic 119–151; BP diastolic 64–85; PULSE 69–77; RESP 18; TEMP 36.8; O2SAT 93–98; BMI 32.7
--- NOTE | 2023-06-25 18:23 | DI.RAD.S_ITS ---
PROCEDURE: XR HIP W PEL IF DONE LT 2V INDICATIONS: fall/pain/unable to walk TECHNIQUE: AP pelvis with lateral view(s) of the left hip(s). COMPARISON: [facility], , [id number] W PEL IF PERFORMED, 08/02/2016, 16:07. FINDINGS: Bones: No fractures or dislocations. Bilateral hip arthroplasty components appear intact. Pelvic ring appears intact. No suspicious bony lesions. Soft tissues: The visualized bowel gas pattern is normal. No suspicious soft tissue calcifications. IMPRESSION: No visible fractures. Hip arthroplasty components are in expected location. Dictated by: Gloria Prabhakar M.D. on 06/25/2023 at 20:06 Approved by: Gloria Prabhakar M.D. on 06/25/2023 at 20:07
--- NOTE | 2023-06-25 18:24 | DI.RAD.S_ITS ---
PROCEDURE: XR KNEE LT 3V INDICATIONS: Fall TECHNIQUE: 3 views of the knee were acquired. COMPARISON: [facility], KNEE BILATERAL STANDING AP, 03/06/2013, 15:15. [facility], CR, KNEE 3V RIGHT, 01/20/2013, 16:32. FINDINGS: Bones: There is a very minimal cortical irregularity the fibular head. No suspicious bony lesions. Moderate tricompartmental arthritic change. Minimal periarticular osteophytes. No erosions. Lateral patellar subluxation. Soft tissues: Mild joint effusion. No suspicious soft tissue calcifications. IMPRESSION: Minimal cortical irregularity of the fibular head. It is not well seen on all views. Recommend correlation to point tenderness as fracture cannot be excluded. Recommend follow-up imaging in 7-10 days. Dictated by: Yaneth Medel M.D. on 06/25/2023 at 22:05 Approved by: Yaneth Medel M.D. on 06/25/2023 at 22:07
--- NOTE | 2023-06-25 18:24 | DI.RAD.S_ITS ---
PROCEDURE: XR HAND LT MIN 3V INDICATIONS: fall/pain TECHNIQUE: Three views of the hand(s) acquired. COMPARISON: None. FINDINGS: Bones: No fractures or dislocations. Moderate degenerative hypertrophic changes at the 1st CMC joint. Carpal bones are normally aligned. No suspicious bony lesions. Soft tissues: No suspicious soft tissue calcifications. IMPRESSION: No acute bony abnormality. Dictated by: Gloria Prabhakar M.D. on 06/25/2023 at 20:07 Approved by: Gloria Prabhakar M.D. on 06/25/2023 at 20:08
--- NOTE | 2023-06-25 18:26 | DI.CT.S_ITS ---
PROCEDURE: CT CERVICAL SPINE WO CON INDICATIONS: fall/hit head/on thinners TECHNIQUE: Noncontrast 3 mm thick sections acquired from the skull base to the T4 level. Sagittal and coronal reformats were then constructed. For radiation dose reduction, the following was used: automated exposure control, adjustment of mA and/or kV according to patient size. COMPARISON: [facility], CR, XR KNEE LT 3V, 06/25/2023, 19:08. [facility], CR, XR HIP W PEL IF DONE LT 2V, 06/25/2023, 18:33. [facility], CR, XR HAND LT MIN 3V, 06/25/2023, 18:33. [facility], CT, CT HEAD/BRAIN WO CON, 06/25/2023, 18:31. [facility], CT, CT CERVICAL SPINE WO CON, 10/17/2017, 17:05. FINDINGS: Image quality: This examination is somewhat limited by quantum mottle artifact. Bones: No fractures or dislocations. Visualized superior ribs are intact. Focal degenerative change is seen involving the C1-C2 interface anteriorly. There is moderate disc space narrowing seen at C3-C4 and C4-C5, with at least moderate disc space narrowing seen at C5-C6, C6-C7, and C7-T1. Bridging anterior osteophytes are seen C3 through T1. Soft tissues: Prevertebral soft tissues are normal in thickness. No paravertebral hematomas. No apical pneumothoraces. Atherosclerotic calcification is noted. IMPRESSION: No displaced fracture or traumatic subluxation. Multiple levels of significant cervical spine degenerative change can be seen. Dictated by: Kar Ornelas M.D. on 06/25/2023 at 18:30 Approved by: Kar Ornelas M.D. on 06/25/2023 at 18:31
--- NOTE | 2023-06-25 18:26 | DI.CT.S_ITS ---
PROCEDURE: CT HEAD/BRAIN WO CON INDICATIONS: fall/hit head/on thinners TECHNIQUE: Noncontrast 4.5 mm thick angled axial sections acquired from the foramen magnum to the vertex, with coronal and sagittal reformats. For radiation dose reduction, the following was used: automated exposure control, adjustment of mA and/or kV according to patient size. COMPARISON: [facility], CT, CT HEAD/BRAIN WO CON, 10/17/2017, 13:27. FINDINGS: Image quality: Diagnostic. CSF spaces: Basal cisterns are patent. No extra-axial fluid collections. The ventricles are symmetric in size and shape. Brain: No intracranial bleeds or masses. There is cerebral volume loss for age, with resultant ventricular and sulcal prominence. There are periventricular and deep white matter chronic small vessel ischemic changes. Scattered patchy areas of hypodensity, particularly left frontal region. There is heavy intracranial internal carotid artery atherosclerosis. Skull and face: Calvarium and visualized facial bones appear intact, without suspicious lesions. Sinuses: Visualized sinuses and mastoids are clear. IMPRESSION: No acute intracranial pathology. Age-appropriate cerebral cortical volume loss and chronic microvascular ischemic changes. Dictated by: Gloria Prabhakar M.D. on 06/25/2023 at 19:09 Approved by: Glorai Prabhakar M.D. on 06/25/2023 at 19:10
--- NOTE | 2023-06-25 22:14 | ED.GENADULT ---
HPI - General Adult General Chief complaint: Trauma Stated complaint: fall onto cement, unable to walk on left leg Time Seen by Provider: 06/25/23 19:22 Source: patient and family Mode of arrival: Wheelchair History of Present Illness HPI narrative: 77-year-old male. Is on Pradaxa. Has a history of Alzheimer's disease. Here with family who stated that he stepped off the deck and fell down approximately 2 ft onto some cement. Potentially landing on his left side. He has an abrasion to his head. He has had quite a bit of difficulty walking on his left hip since the event. Had other discomfort to include is left wrist. No neck pain. Related Data Previous Rx's Medication Instructions Recorded atorvastatin 20 mg tablet 20 mg PO DAILY #90 tabs 10/21/17 blood sugar diagnostic (Blood #100 ea 03/03/18 Glucose Test strips) clopidogrel 75 mg tablet (Plavix) 75 mg PO QDAY #90 tabs 03/20/18 insulin glargine 100 unit/mL (3 10 unit (0.1 mL) SUBCUT QDAY #15 mL 03/20/18 mL) subcutaneous pen (Lantus Solostar U-100 Insulin) metformin 500 mg tablet 500 mg PO QDAY #90 tabs 03/20/18 (Glucophage) pen needle, diabetic 31 gauge x #100 ea 03/20/1805/10 (Comfort EZ Pen [place]) Allergies Allergy/AdvReac Type Severity Reaction Status Date / Time No Known Drug Allergies Allergy Verified 10/21/17 16:15 Review of Systems Review of Systems Narrative: See HPI Patient History Medical History Osteoarthritis (Unknown) Hyperlipemia (Unknown) Hypertension (Unknown) Skin mole (2013) Measles (1955) Mumps (1955) Malaria (1973) Diabetes (2013) Stroke (12/2013) Surgical History History of hip replacement (04/27/14) Family History Brother Age: 66 Diabetes mellitus Father Stroke Grandmother Diabetes mellitus Heart disease Mother Stroke Grandfather Heart disease Sister Age: 73 Diabetes mellitus Social History household members: spouse and children Smoking Status: Never smoker alcohol intake: never substance use type: does not use Smoking Status: Never smoker alcohol intake frequency: 0-2 drinks per day Substance Use Type: does not use Exam Initial Vital Signs Initial Vital Signs: Vital Signs Temperature 98.2 F 06/25/23 18:14 Pulse Rate 74 06/25/23 18:14 Respiratory Rate 18 06/25/23 18:14 Blood Pressure 136/84 06/25/23 18:14 Pulse Oximetry 98 06/25/23 18:14 Oxygen Delivery Method Room Air 06/25/23 18:14 Const General: cooperative, comfortable and No ill appearing Resp Effort & Inspection: normal respiratory effort Auscultation: clear to auscultation bilaterally Cardio Rate: regular rate Rhythm: regular rhythm GI Inspection: normal to inspection Neuro General: patient alert, patient awake and moves all extremities Extrem General: normal to inspection and No capillary refill normal Other: Pelvis is stable Course Orders Ordered: ED Orders 06/25/23 18:23 XR hip w pel if done LT 2V Stat 06/25/23 18:24 XR hand LT min 3V Stat XR knee LT 3V Stat 06/25/23 18:26 CT cervical spine wo con Stat CT head/brain wo con Stat Vital Signs Vital signs: Vital Signs - 8 hr 06/25/23 19:17 06/25/23 19:18 06/25/23 19:18 Pulse Rate 76 Blood Pressure 149/73 H Pulse Oximetry 94 98 Oxygen Delivery Method 06/25/23 19:30 06/25/23 19:30 06/25/23 20:00 Pulse Rate 77 74 Blood Pressure 145/73 H Pulse Oximetry 96 93 Oxygen Delivery Method Room Air 06/25/23 20:01 06/25/23 20:01 06/25/23 20:30 Pulse Rate 74 75 Blood Pressure 119/78 Pulse Oximetry 93 96 Oxygen Delivery Method 06/25/23 20:31 06/25/23 20:31 06/25/23 21:00 Pulse Rate 69 70 Blood Pressure 146/85 H Pulse Oximetry 94 96 Oxygen Delivery Method 06/25/23 21:01 06/25/23 21:01 06/25/23 21:18 Pulse Rate 73 69 Blood Pressure 151/72 H Pulse Oximetry 96 95 Oxygen Delivery Method Room Air Room Air 06/25/23 22:39 Pulse Rate Blood Pressure 126/64 Pulse Oximetry Oxygen Delivery Method Medical Decision Making Lab Data Lab results reviewed: Yes I reviewed the patient's lab results. Labs: Point of Care Testing Glucose POC 160 Point of care testing: Point of Care Testing Glucose POC 160 Imaging Data Extremity x-ray #1: Radiologist's Impression: PROCEDURE: XR HIP W PEL IF DONE LT 2V INDICATIONS: fall/pain/unable to walk TECHNIQUE: AP pelvis with lateral view(s) of the left hip(s). COMPARISON: [facility], CR, [id number] W PEL IF PERFORMED, 08/02/2016, 16:07. FINDINGS: Bones: No fractures or dislocations. Bilateral hip arthroplasty components appear intact. Pelvic ring appears intact. No suspicious bony lesions. Soft tissues: The visualized bowel gas pattern is normal. No suspicious soft tissue calcifications. IMPRESSION: No visible fractures. Hip arthroplasty components are in expected location. Extremity x-ray #2: Radiologist's Impression: PROCEDURE: XR HAND LT MIN 3V INDICATIONS: fall/pain TECHNIQUE: Three views of the hand(s) acquired. COMPARISON: None. FINDINGS: Bones: No fractures or dislocations. Moderate degenerative hypertrophic changes at the 1st CMC joint. Carpal bones are normally aligned. No suspicious bony lesions. Soft tissues: No suspicious soft tissue calcifications. IMPRESSION: No acute bony abnormality. Extremity x-ray #3: Radiologist's Impression: PROCEDURE: XR KNEE LT 3V INDICATIONS: Fall TECHNIQUE: 3 views of the knee were acquired. COMPARISON: , KNEE BILATERAL STANDING AP, 03/06/2013, 15:15. [facility], CR, KNEE 3V RIGHT, 01/20/2013, 16:32. FINDINGS: Bones: There is a very minimal cortical irregularity the fibular head. No suspicious bony lesions. Moderate tricompartmental arthritic change. Minimal periarticular osteophytes. No erosions. Lateral patellar subluxation. Soft tissues: Mild joint effusion. No suspicious soft tissue calcifications. IMPRESSION: Minimal cortical irregularity of the fibular head. It is not well seen on all views. Recommend correlation to point tenderness as fracture cannot be excluded. Recommend follow-up imaging in 7-[address] - cervical spine: Radiologist's Impression: PROCEDURE: CT CERVICAL SPINE WO CON INDICATIONS: fall/hit head/on thinners TECHNIQUE: Noncontrast 3 mm thick sections acquired from the skull base to the T4 level. Sagittal and coronal reformats were then constructed. For radiation dose reduction, the following was used: automated exposure control, adjustment of mA and/or kV according to patient size. COMPARISON: [facility], CR, XR KNEE LT 3V, 06/25/2023, 19:08. [facility], CR, XR HIP W PEL IF DONE LT 2V, 06/25/2023, 18:33. [facility], CR, XR HAND LT MIN 3V, 06/25/2023, 18:33. [facility], CT, CT HEAD/BRAIN WO CON, 06/25/2023, 18:31. [facility], CT, CT CERVICAL SPINE WO CON, 10/17/2017, 17:05. FINDINGS: Image quality: This examination is somewhat limited by quantum mottle artifact. Bones: No fractures or dislocations. Visualized superior ribs are intact. Focal degenerative change is seen involving the C1-C2 interface anteriorly. There is moderate disc space narrowing seen at C3-C4 and C4-C5, with at least moderate disc space narrowing seen at C5-C6, C6-C7, and C7-T1. Bridging anterior osteophytes are seen C3 through T1. Soft tissues: Prevertebral soft tissues are normal in thickness. No paravertebral hematomas. No apical pneumothoraces. Atherosclerotic calcification is noted. IMPRESSION: No displaced fracture or traumatic subluxation. Multiple levels of significant cervical spine degenerative change can be seen. CT scan - head: Radiologist's Impression: PROCEDURE: CT HEAD/BRAIN WO CON INDICATIONS: fall/hit head/on thinners TECHNIQUE: Noncontrast 4.5 mm thick angled axial sections acquired from the foramen magnum to the vertex, with coronal and sagittal reformats. For radiation dose reduction, the following was used: automated exposure control, adjustment of mA and/or kV according to patient size. COMPARISON: [facility], CT, CT HEAD/BRAIN WO CON, 10/17/2017, 13:27. FINDINGS: Image quality: Diagnostic. CSF spaces: Basal cisterns are patent. No extra-axial fluid collections. The ventricles are symmetric in size and shape. Brain: No intracranial bleeds or masses. There is cerebral volume loss for age, with resultant ventricular and sulcal prominence. There are periventricular and deep white matter chronic small vessel ischemic changes. Scattered patchy areas of hypodensity, particularly left frontal region. There is heavy intracranial internal carotid artery atherosclerosis. Skull and face: Calvarium and visualized facial bones appear intact, without suspicious lesions. Sinuses: Visualized sinuses and mastoids are clear. IMPRESSION: No acute intracranial pathology. Age-appropriate cerebral cortical volume loss and chronic microvascular ischemic changes. MDM Narrative Medical decision making narrative: Imaging as scan showed no acute pathology. Patient was able to put pressure on his left leg and ambulate here in the ER. I do feel that we can hold on any further advanced imaging from now. Patient and family were given return precautions and follow-up instructions. They expressed understanding and agreement. Discharge Plan Departure Patient Disposition: Home Clinical Impression: Hip pain, Fall Instructions: How to Prevent Falls Activity Restrictions/Additional Instructions: Continue to take all of your medications as directed. You can take Tylenol for any discomfort. You can return home tomorrow like you have planned. Return to the emergency department for new symptoms Prescriptions: No Action atorvastatin 20 mg tablet 20 mg PO DAILY Qty: 90 1RF (DME) blood sugar diagnostic [Blood Glucose Test] strip See Dose Instructions .ROUTE .MEDSUPPLY Qty: 100 0RF Dose Instruction: As directed Rx Instructions: Use to test blood sugars up to 4 times daily metformin [Glucophage] 500 mg tablet 500 mg PO QDAY Qty: 90 0RF clopidogrel [Plavix] 75 mg tablet 75 mg PO QDAY Qty: 90 0RF insulin glargine [Lantus Solostar U-100 Insulin] 100 unit/mL (3 mL) insulin pen 10 unit SUBCUT QDAY Qty: 15 0RF (DME) pen needle, diabetic [Comfort EZ Pen [place]] 31 gauge x 3/16 needle See Dose Instructions .ROUTE .MEDSUPPLY Qty: 100 0RF Dose Instruction: As directed Rx Instructions: Use to inject insulin Stand Alone Forms: Patient Portal/API
== END 2023-06-25 22:47 | disposition home or self-care (01) ==
PROVIDERS: Emergency Provider Emergency Medicine; Family Provider Family Medicine
DX: M25.552 Pain in left hip (principal); M79.642 Pain in left hand; M25.562 Pain in left knee; W17.89XA Other fall from one level to another, initial encounter; G30.9 Alzheimer's disease, unspecified; Z79.01 Long term (current) use of anticoagulants
CPT/HCPCS: 70450; 72125; 73130; 73502; 73562; 82962; 99284

== ENCOUNTER → 2024-12-04 17:32 | Outpatient (CLI) | payer OTHER, SELFPAY ==
[2017-10-17 16:24] VITALS: BMI 34.8
[2024-12-04 19:22] LABS: Prostate Specific Antigen 0.610 ng/mL (0.10-4.00)
== END ==
PROVIDERS: PCP Family Medicine; Referring Provider Urology; Visit Provider Urology
DX: C61 Malignant neoplasm of prostate (principal); R97.20 Elevated prostate specific antigen [PSA]
CPT/HCPCS: 36415; 84153

== ENCOUNTER 2025-02-01 21:01 | Emergency (ER) | payer OTHER, SELFPAY ==
[2017-10-17 16:24] VITALS: BMI 34.8
[2025-02-01 21:06] VITALS: BP 116/86; PULSE 65; RESP 18; TEMP 36.4; O2SAT 97; BMI 31.7
--- NOTE | 2025-02-01 21:16 | EKG_ITS ---
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
--- NOTE | 2025-02-01 21:16 | DI.RAD.S_ITS ---
PROCEDURE: XR CHEST 1V INDICATIONS: Chest Pain TECHNIQUE: One view of the chest was acquired. COMPARISON: None. FINDINGS: Surgical changes and devices: None. Lungs and pleura: Lungs are clear. No pleural effusions or pneumothorax. Mediastinum: Mediastinal contours appear normal. Heart size is normal. Bones and chest wall: No suspicious bony lesions. Overlying soft tissues appear unremarkable. IMPRESSION: No acute cardiopulmonary abnormality is seen. Dictated by: Rashad Enriquez M.D. on 02/01/2025 at 22:18 Approved by: Rashad Enriquez M.D. on 02/01/2025 at 22:18
[2025-02-01 21:48] LABS: Add Manual Diff / Slide Review NO; Hematocrit 39.2 % (41-53); Hemoglobin 13.3 g/dL (13.5-17.5); Lymphocytes Absolute Auto 2500 /uL (1100-4500); Mean Corpuscular HGB Conc 34.0 % (30-36); Mean Corpuscular Hemoglobin 30.2 PG (26-34); Mean Corpuscular Volume 89.0 fL (80-100); Platelet Count 204 X10^3/uL (150-400)
[2025-02-01 21:53] LABS: INR 1.2 (0.9-1.3); Prothrombin Time 13.8 SECONDS (9.4-12.5)
[2025-02-01 21:56] LABS: PTT Partial Thromboplastin Tim 50 SECONDS (25.1-36.5)
[2025-02-01 21:59] LABS: Alanine Aminotransferase 23 IU/L (<50); Albumin 4.8 g/dL (3.5-5.0); Albumin Globulin Ratio 1.5 (1.0-2.8); Alkaline Phosphatase 72 U/L (38-126); Blood Urea Nitrogen 21 mg/dL (9-20); Calcium 9.3 mg/dL (8.4-10.2); Carbon Dioxide 22 mmol/L (22-32); Chloride 107 mmol/L (98-107); Creatine Kinase 57 U/L (55-170); Estimated Glomerular Filt Rate 58 mL/min (>60); Globulin 3.1 g/dL (1.7-4.1); Glucose 127 mg/dL (70-99); HEMOLYSIS < 15 (0-50); Lipase 59 U/L (23-300); Magnesium 1.9 mg/dL (1.6-2.3); Potassium 4.0 mmol/L (3.4-5.1); Sodium 140 mmol/L (137-145); Total Protein 7.9 g/dL (6.3-8.2)
[2025-02-01 22:10] LABS: NT-proBNP (BNP-Adult 18+) 380 pg/mL (<450); Troponin I < 0.012 ng/mL (0.01-0.034)
--- NOTE | 2025-02-01 22:28 | ED_ITS ---
HPI - Chest Pain <Contreras Angel MD - Last Filed: 02/01/25 22:30> General Chief Complaint: Chest Pain Stated Complaint: chest px 4 days Time Seen by Provider: 02/01/25 21:17 Mode of arrival: Ambulatory History of Present Illness HPI narrative: This is a 1-year-old white male presents to the emergency room with 4 days of left-sided chest pain the pain is described as sharp worse with movement of his arm and self-limited. There is no substernal chest pain pressure heaviness no shortness of breath no cough no nausea or vomiting no diaphoresis patient also denies orthopnea or pedal edema. Related Data Previous Rx's ?Medication ?Instructions ?Recorded atorvastatin 20 mg tablet 20 mg PO DAILY #90 tabs 09/26 09/11 blood sugar diagnostic (Blood #100 ea 03/03/18 Glucose Test strips) clopidogrel 75 mg tablet (Plavix) 75 mg PO QDAY #90 ta bs 03/20/18 insulin glargine 100 unit/mL (3 10 unit (0.1 mL) SUBCU T QDAY #15 mL 03/20/18 mL) subcutaneous pen (Lantus Solostar U-100 Insulin) metformin 500 mg tablet 500 mg PO QDAY #90 tabs 02/26 06/13 (Glucophage) pen needle, diabetic 31 gauge x #100 ea 03/20/1805/10 (Comfort EZ Pen [place]) Allergies Allergy/AdvReac Type Severity Reaction Status Date / Time No Known Drug Allergies Allergy Verified 02/01/25 21:08 <Richard Moss MD - Last Filed: 02/02/25 02:01> History of Present Illness HPI narrative: This is a 79-year-old white male presents to the emergency room with 4 days of left-sided chest pain the pain is described as sharp worse with movement of his arm and self-limited. There is no substernal chest pain pressure heaviness no shortness of breath no cough no nausea or vomiting no diaphoresis patient also denies orthopnea or pedal edema. Review of Systems <Contreras Angel MD - Last Filed: 02/01/25 22:30> Review of Systems Narrative: GENERAL: Denies chills, fatigue, malaise, fever, sweats. HEENT: Denies sinus pain, ear pain, sore throat, difficulty swallowing, dizziness. RESPIRATORY: Denies dyspnea, cough, wheezing, hemoptysis, sputum. CARDIOVASCULAR: See HPI GASTROINTESTINAL: Denies nausea, vomiting, abdominal pain, diarrhea, constipation, melena. : Denies dysuria, frequency, incontinence, hematuria, urinary retention. MUSCULOSKELETAL: denies weakness, joint pain, or bony pain SKIN: Denies rash, skin lesions, or other NEUROLOGIC: Denies weakness, headache, numbness, change in speech, confusion, seizures, incoordination. PSYCHIATRIC: No concerning psychosocial issues. 12 point review of systems is negative except for those stated above Patient History <Contreras Angel MD - Last Filed: 02/01/25 22:30> Medical History (Updated 02/02/25 @ 01:18 by Richard Moss MD) Osteoarthritis (Unknown) Hyperlipemia (Unknown) Hypertension (Unknown) Skin mole (2013) Measles (1955) Mumps (1955) Malaria (1973) Diabetes (2013) Stroke (12/2013) Surgical History History of hip replacement (04/27/14) Family History Brother Age: 68 Diabetes mellitus Father Stroke Grandmother Diabetes mellitus Heart disease Mother Stroke Grandfather Heart disease Sister Age: 75 Diabetes mellitus Social History household members: spouse and children alcohol intake: never substance use type: does not use alcohol intake frequency: 0-2 drinks per day Exam <Contreras Angel MD - Last Filed: 02/01/25 22:30> Narrative Exam Narrative: GENERAL: [] year old patient appears stated age. Well-developed patient, in mild distress. HEAD: Atraumatic. Normocephalic. EYES: Pupils equal round and reactive. Extraocular motions intact. No scleral icterus. No injection or drainage. ENT: Nose without bleeding, purulent drainage. Throat without erythema, tonsillar hypertrophy or exudate. Airway patent. NECK: Trachea midline. Non tender Chest: There is reproducible left-sided chest wall tenderness CARDIOVASCULAR: Regular rate and rhythm without murmurs, gallops, or rubs. RESPIRATORY: Clear to auscultation. Breath sounds equal bilaterally. No wheezes, rales, or rhonchi. GASTROINTESTINAL: Abdomen soft, non-tender, nondistended. EXTREMITIES: No edema or joint tenderness. BACK: Nontender without deformity or crepitance. No flank tenderness. NEURO: AOx3. SKIN: No rash or erythema of visible areas Initial Vital Signs Initial Vital Signs: Vital Signs Temperature 97.5 F L 02/01/25 21:06 Pulse Rate 65 02/01/25 21:06 Respiratory Rate 18 02/01/25 21:06 Blood Pressure 116/86 02/01/25 21:06 Pulse Oximetry 97 02/01/25 21:06 Oxygen Delivery Method Room Air 02/01/25 21:06 <Richard Moss MD - Last Filed: 02/02/25 02:01> Initial Vital Signs Initial Vital Signs: Vital Signs Temperature 97.5 F L 02/01/25 21:06 Pulse Rate 65 02/01/25 21:06 Respiratory Rate 18 02/01/25 21:06 Blood Pressure 116/86 02/01/25 21:06 Pulse Oximetry 97 02/01/25 21:06 Oxygen Delivery Method Room Air 02/01/25 21:06 Course <Contreras Angel MD - Last Filed: 02/01/25 22:30> Orders Ordered: ED Orders 02/01/25 21:16 XR chest 1V Stat EKG-12 Lead Stat 02/01/25 21:35 Complete Blood Count AUTO DIFF Stat Comprehensive Metabolic Panel Stat Lipase Stat Magnesium Stat NT-proBNP (BNP-Adult 18+) Stat PTT Partial Thromboplastin Kevin Stat Prothrombin Time INR Stat Troponin & CK Cardiac Panel Stat 02/02/25 00:12 Troponin I Stat Discontinued Medications Aspirin (Aspirin 81 Mg Chew Tab) 324 mg PO NOW ONE Stop: 02/01/25 21:16 Vital Signs Vital signs: Vital Signs - 8 hr 02/01/25 21:06 Temperature 97.5 F L Pulse Rate 65 Respiratory Rate 18 Blood Pressure 116/86 Pulse Oximetry 97 Oxygen Delivery Method Room Air <Richard Moss MD - Last Filed: 02/02/25 02:01> Orders Ordered: ED Orders 02/01/25 21:16 XR chest 1V Stat EKG-12 Lead Stat 02/01/25 21:35 Complete Blood Count AUTO DIFF Stat Comprehensive Metabolic Panel Stat Lipase Stat Magnesium Stat NT-proBNP (BNP-Adult 18+) Stat PTT Partial Thromboplastin Kevin Stat Prothrombin Time INR Stat Troponin & CK Cardiac Panel Stat 02/02/25 00:12 Troponin I Stat Discontinued Medications Aspirin (Aspirin 81 Mg Chew Tab) 324 mg PO NOW ONE Stop: 02/01/25 21:16 Vital Signs Vital signs: Vital Signs - 8 hr 02/01/25 21:06 Temperature 97.5 F L Pulse Rate 65 Respiratory Rate 18 Blood Pressure 116/86 Pulse Oximetry 97 Oxygen Delivery Method Room Air MDM - Chest Pain <Contreras Angel MD - Last Filed: 02/01/25 22:30> Lab Data 02/01/25 21:35 02/01/25 21:35 Labs: Lab Results 02/01/25 02/02/25 Range/Units 21:35 00:12 WBC 8.8 (4.5-11.0) X10^3/uL RBC 4.41 L (4.5-5.9) X10^6/uL Hgb 13.3 L (13.5-17.5) g/dL Hct 39.2 L (41-53) % MCV 89.0 (80-100) fL MCH 30.2 (26-34) PG MCHC 34.0 (30-36) % RDW 13.9 (11.6-14.8) % Plt Count 204 (150-400) X10^3/uL Neut % (Auto) 60.4 (50-75) % Lymph % (Auto) 28.2 (25-40) % [place] % (Auto) 9.1 (3-14) % Eos % (Auto) 1.8 L (2-4) % Baso % (Auto) 0.5 (0-2) % Neut # (Auto) 5300 (1013-4635) /uL Lymph # (Auto) 2500 (2767-6404) /uL [place] # (Auto) 800 (0-900) /uL Eos # (Auto) 200 (0-450) /uL Baso # (Auto) 0 (0-100) /uL PT 13.8 H (9.4-12.5) SECONDS INR 1.2 (0.9-1.3) APTT 50 H (25.1-36.5) SECONDS Sodium 140 (137-145) mmol/L Potassium 4.0 (3.4-5.1) mmol/L Chloride 107 (98-107) mmol/L Carbon Dioxide 22 (22-32) mmol/L BUN 21 H (9-20) mg/dL Creatinine 1.24 (0.66-1.25) mg/dL Estimated GFR 58 L (>60) mL/min BUN/Creatinine Ratio 16.9 (6-22) Glucose 127 H (70-99) mg/dL Calcium 9.3 (8.4-10.2) mg/dL Magnesium 1.9 (1.6-2.3) mg/dL Total Bilirubin 0.5 (0.2-1.3) mg/dL AST 30 (17-59) IU/L ALT 23 (<50) IU/L Alkaline Phosphatase 72 (38-126) U/L Total Creatine Kinase 57 (55-170) U/L Troponin I < 0.012 < 0.012 (0.01-0.034) ng/mL NT-Pro-B Natriuret Pep 380 (<450) pg/mL Total Protein 7.9 (6.3-8.2) g/dL Albumin 4.8 (3.5-5.0) g/dL Globulin 3.1 (1.7-4.1) g/dL Albumin/Globulin Ratio 1.5 (1.0-2.8) Lipase 59 (23-300) U/L <Richard Moss MD - Last Filed: 02/02/25 02:01> Lab Data Labs: Lab Results 02/01/25 02/02/25 Range/Units 21:35 00:12 WBC 8.8 (4.5-11.0) X10^3/uL RBC 4.41 L (4.5-5.9) X10^6/uL Hgb 13.3 L (13.5-17.5) g/dL Hct 39.2 L (41-53) % MCV 89.0 (80-100) fL MCH 30.2 (26-34) PG MCHC 34.0 (30-36) % RDW 13.9 (11.6-14.8) % Plt Count 204 (150-400) X10^3/uL Neut % (Auto) 60.4 (50-75) % Lymph % (Auto) 28.2 (25-40) % [place] % (Auto) 9.1 (3-14) % Eos % (Auto) 1.8 L (2-4) % Baso % (Auto) 0.5 (0-2) % Neut # (Auto) 5300 (0525-2214) /uL Lymph # (Auto) 2500 (3273-2757) /uL [place] # (Auto) 800 (0-900) /uL Eos # (Auto) 200 (0-450) /uL Baso # (Auto) 0 (0-100) /uL PT 13.8 H (9.4-12.5) SECONDS INR 1.2 (0.9-1.3) APTT 50 H (25.1-36.5) SECONDS Sodium 140 (137-145) mmol/L Potassium 4.0 (3.4-5.1) mmol/L Chloride 107 (98-107) mmol/L Carbon Dioxide 22 (22-32) mmol/L BUN 21 H (9-20) mg/dL Creatinine 1.24 (0.66-1.25) mg/dL Estimated GFR 58 L (>60) mL/min BUN/Creatinine Ratio 16.9 (6-22) Glucose 127 H (70-99) mg/dL Calcium 9.3 (8.4-10.2) mg/dL Magnesium 1.9 (1.6-2.3) mg/dL Total Bilirubin 0.5 (0.2-1.3) mg/dL AST 30 (17-59) IU/L ALT 23 (<50) IU/L Alkaline Phosphatase 72 (38-126) U/L Total Creatine Kinase 57 (55-170) U/L Troponin I < 0.012 < 0.012 (0.01-0.034) ng/mL NT-Pro-B Natriuret Pep 380 (<450) pg/mL Total Protein 7.9 (6.3-8.2) g/dL Albumin 4.8 (3.5-5.0) g/dL Globulin 3.1 (1.7-4.1) g/dL Albumin/Globulin Ratio 1.5 (1.0-2.8) Lipase 59 (23-300) U/L MDM Narrative Medical decision making narrative: 11Pm: received sign out from DR. Angel that was just awaiting second set of troponin and can be discharged. Patient remained asymptomatic for my shift. Second set of troponin was negative. Advised to follow up with primary to get a referral to a pr internship. Dr. Batista recommended and business card was given. Advised to follow up sooner if symptoms worsen. Discharge Plan Departure Patient Disposition: Home Clinical Impression: Atypical chest pain Instructions: DI for Atypical Chest Pain Activity Restrictions/Additional Instructions: Continue with same meds as prescribed. Follow up with Cardiology for further intervention. Follow up sooner if symptoms do not improve. Prescriptions: No Action atorvastatin 20 mg tablet 20 mg PO DAILY Qty: 90 1RF (DME) blood sugar diagnostic [Blood Glucose Test] strip See Dose Instructions .ROUTE .MEDSUPPLY Qty: 100 0RF Dose Instruction: As directed Rx Instructions: Use to test blood sugars up to 4 times daily metformin [Glucophage] 500 mg tablet 500 mg PO QDAY Qty: 90 0RF clopidogrel [Plavix] 75 mg tablet 75 mg PO QDAY Qty: 90 0RF insulin glargine [Lantus Solostar U-100 Insulin] 100 unit/mL (3 mL) insulin pen 10 unit SUBCUT QDAY Qty: 15 0RF (DME) pen needle, diabetic [Comfort EZ Pen [place]] 31 gauge x 3/16 needle See Dose Instructions .ROUTE .MEDSUPPLY Qty: 100 0RF Dose Instruction: As directed Rx Instructions: Use to inject insulin Referrals: Paige Mi MD [Primary Care Provider, Family Practice] Stand Alone Forms: Patient Portal/API
--- NOTE | 2025-02-01 22:30 | PC.NURSE ---
pt c/o c/p times 3-4 days intermittently, no chest pain at present at bedside
[2025-02-02 01:17] LABS: Troponin I < 0.012 ng/mL (0.01-0.034)
[2025-02-02 01:50] VITALS: BP 118/60; PULSE 64; RESP 18; O2SAT 97
== END 2025-02-02 01:50 | disposition home or self-care (01) ==
PROVIDERS: Emergency Medicine; Emergency Provider Family Medicine; PCP Family Medicine
DX: R07.89 Other chest pain (principal)
CPT/HCPCS: 36415; 71045; 80053; 82550; 83690; 83735; 83880; 84484; 85025; 85610; 85730; 93005; 93010; 99283; 99284